=== PATIENT | male | born 1990 | race Caucasian/White ===

== ENCOUNTER 2018-10-01 07:11 | Emergency (ER) | payer OTHER ==
[~2018-10-01] VITALS: Ht 175.3 cm; Wt 77.2 kg
[2018-10-01 07:16] VITALS: BP 143/84
--- NOTE | 2018-10-01 07:59 | NUR ---
pt upright on gurney awake & comfortable, responds approp to staff, NAD at rest, comfort measures provided, call light within reach.
--- NOTE | 2018-10-01 08:25 | NUR ---
Patient given discharge instructions and they have confirmed that they understand the instructions. Patient ambulatory with steady gait.
== END 2018-10-01 08:43 | disposition home or self-care (01) ==
LOC: ED 07:39
DX: S43.51XA Sprain of right acromioclavicular joint, initial encounter (principal); W18.30XA Fall on same level, unspecified, initial encounter; Y93.89 Activity, other specified; Y92.89 Other specified places as the place of occurrence of the external cause; Y99.8 Other external cause status
CPT/HCPCS: 99283